=== PATIENT | female | born 1970 | race Caucasian/White ===

== ENCOUNTER → 2017-01-19 | Outpatient (CLI) | payer OTHER ==
--- NOTE | ~2017-01-19 | US98 ---
[facility] A Service of [facility] & [facility] RADIOLOGY TEXT RESULTS PATIENT: CARIN MÉNDEZ LOCATION: [facility] : 74 UNIT #: [id number] AGE: [address]: Petrona Armendariz SEX: F ORDER DR: [id number] [facility] [address] [place], [place] [address] [id number] O MR#: [id number] Acc #: [id number] NAME: CARIN MÉNDEZ : 1970 SEX: F STUDY DATE/TIME: 01/19/2017 11:37 UNIT: [facility] ROOM: STUDY DESCRIPTION: US Pelvic Non-OB Complete Attending Physician: Petrona Armendariz A.P.R.N. Referring Physician: Corinne Bond A.P.R.N. Ordering Physician: Petrona Armendariz A.P.R.N. Primary Care Physician: Petrona Armendariz A.P.R.N. MEDICAL IMAGING REPORT This report is preliminary unless electronic signature is present EXAM Pelvic ultrasound transabdominal and transvaginal technique 01/19/2017 INDICATIONS Fibroids back pain diffuse abdominal pain for the last one-half year. MRI at open [facility] recently. History of cholecystectomy. Last menstrual period 01/19/2017. Distension and bloating. TECHNIQUE Sonographic imaging of the pelvis was formed transabdominally and then transvaginally for better evaluation of the adnexa and ovarian structures. No comparisons. FINDINGS TRANSABDOMINAL IMAGING: Uterus measures 13.5 x 8.2 x 8.5 cm. Endometrial stripe measures 3-4 mm. At least 2 fibroids are present. One in the posterior mid uterine segment measures up to about 2.8 cm second larger probable intramural fibroid in the mid uterine segment measures between 6 and 7 cm. TRANSVAGINAL IMAGING: Endometrial stripe measures about 3-4 mm. Previously described fibroids are again noted. The right ovary is not well visualized but to the extent seen measures up to about 3.5 cm. There is good flow at the time of the study. Left ovary not identified transabdominally or transvaginally. No free fluid or drainable fluid collection. IMPRESSION 1. Enlarged leiomyomatous uterus. No endometrial thickening. 2. Right ovary unremarkable. Left ovary not visualized or assessed. Dictated by... René Newell M.D. [facility] A Service of [facility] RADIOLOGY TEXT RESULTS PATIENT: CARIN MÉNDEZ LOCATION: [facility] : 74 UNIT #: [id number] AGE: [address]: Petrona Armendariz SEX: F ORDER DR: THIS IS AN ELECTRONICALLY VERIFIED REPORT René Newell M.D. at 01/19/2017 11:33 PM MAHESH/clary TD: 01/19/2017 20:05 JOB #: [id number] MEDICAL IMAGING REPORT Page 1 of 1 COPY
== END | disposition home or self-care (01) ==
LOC: CWCC 11:24
DX: D25.9 Leiomyoma of uterus, unspecified (principal)
CPT/HCPCS: 76830; 76856